=== PATIENT | female | born 1990 | race Caucasian/White ===

== ENCOUNTER 2016-07-15 06:51 | Emergency (ER) | payer SELFPAY ==
[~2016-07-15] VITALS: Ht 177.8 cm; Wt 136.1 kg
--- NOTE | 2016-07-15 07:19 | ED Dyspnea ---
General Stated Complaint: POSS BRONCHITIS Source of Information: Patient, RN Notes Reviewed Exam Limitations: No Limitations History of Present Illness Time Seen by Provider: 07:18 Initial Comments As above and below. Timing/Duration: Other (5 DAYS) Severity: Moderate Activities at Onset: None Prior Episodes/Possible Cause: Occasional Episodes Modifying Factors: Worse With Coughing Associated Symptoms: Cough, Fever (???), Wheezing Allergies and Home Medications Allergies Coded Allergies: No Known Drug Allergies (Unverified , 07/15/16) Home Medications Albuterol Sulfate 1 Puff Puff, 2 PUFF IH Q4H PRN for wheezing/cough/SOA, #1 Ref 0 1 PUFF = 90 MCG Prescribed by: LUANN URBINA on 07/15/16 0810 Prednisone 20 Mg Tab, 30 MG PO BID, #15 Ref 0 Prescribed by: LUANN URBINA on 07/15/16 0810 Constitutional: see HPI, fever (???) Respiratory: see HPI, cough All Other Systems Reviewed Negative Unless Noted: Yes (Negative excepted noted.) Past [id number] Hx Patient Social History Recent Foreign Travel: No Contact w/Someone Who Travel: No Physical Exam Vital Signs Vital Sign - Last 12Hours 07/15/16 07/15/16 07:12 08:15 Temp 98.2 Pulse 100 Resp 18 B/P (MAP) 141/110 Pulse Ox 94 O2 Delivery Room Air Capillary Refill : General Appearance: No Apparent Distress, WD/WN, Obese HEENT: Normal ENT Inspection Neck: Supple Respiratory: No Respiratory Distress, Rhonci, Wheezing Cardiovascular: Regular Rate, Rhythm Rectal: Deferred Neurologic/Psychiatric: Alert, Oriented x3, No Motor/Sensory Deficits Skin: Warm/Dry Lymphatic: No Adenopathy Progress/Results/Core Measures Results/Orders Lab Results Laboratory Tests Test 07/15/16 07:52 Range/Units White Blood Count 10.4 4.3-11.0 10^3/uL Red Blood Count 5.31 4.35-5.85 10^6/uL Hemoglobin 15.1 11.5-16.0 G/DL Hematocrit 46 35-52 % Mean Corpuscular Volume 87 80-99 FL Mean Corpuscular Hemoglobin 28 25-34 PG Mean Corpuscular Hemoglobin Concent 33 32-36 G/DL Red Cell Distribution Width 13.3 10.0-14.5 % Platelet Count 345 130-400 10^3/uL Mean Platelet Volume 10.4 7.4-10.4 FL Neutrophils (%) (Auto) 49 42-75 % Lymphocytes (%) (Auto) 38 12-44 % Monocytes (%) (Auto) 9 0-12 % Eosinophils (%) (Auto) 3 0-10 % Basophils (%) (Auto) 1 0-10 % Neutrophils # (Auto) 5.1 1.8-7.8 X 10^3 Lymphocytes # (Auto) 3.9 1.0-4.0 X 10^3 Monocytes # (Auto) 0.9 0.0-1.0 X 10^3 Eosinophils # (Auto) 0.3 0.0-0.3 10^3/uL Basophils # (Auto) 0.1 0.0-0.1 10^3/uL My Orders Orders - LUANN URBINA DO Cbc With Automated Diff (07/15/16 07:21) Chest Pa/Lat (2 View) (07/15/16 07:21) Albuterol/Ipra Inhalation Soln (Duoneb I (07/15/16 07:30) Svn Sm Volume Nebulizer Rt-Rfs (07/15/16 07:21) Medications Given in ED Current Medications Medications Dose Ordered Sig/Raymond Route Start Time Stop Time Status Last Admin Dose Admin Albuterol/ Ipratropium 3 ml ONCE ONCE INH 07/15/16 07:30 07/15/16 07:31 DC 07/15/16 07:39 3 ML Vital Signs/I&O Vital Sign - Last 12Hours 07/15/16 07/15/16 07/15/16 07:12 07:40 08:15 Temp 98.2 Pulse 100 100 Resp 18 B/P (MAP) 141/110 Pulse Ox 94 96 95 O2 Delivery Room Air Diagnostic Imaging Diagonstic Imaging: Xray Plain Films/CT/US/NM/MRI: chest Reviewed: Reviewed/Discussed Departure Impression Impression: Primary Impression: Asthmatic bronchitis Disposition: 01 HOME, SELF-CARE Condition: Stable Departure-Patient Inst. Decision time for Depature: 08:08 Referrals: NO,LOCAL PHYSICIAN (PCP) Primary Care Physician Patient Instructions: Acute Bronchitis, Adult (DC) Scripts Albuterol Sulfate (PROAIR HFA) 1 Puff Puff 2 PUFF IH Q4H Y for wheezing/cough/SOA, #1 INHALER 0 Refills 1 PUFF = 90 MCG Prov: LUANN URBINA DO 07/15/16 Prednisone (Prednisone) 20 Mg Tab 30 MG PO BID, #15 TAB 0 Refills Prov: LUANN URBINA DO 07/15/16 Work/School Note: Work Release Form Date Seen in the Emergency Department: Jul 15, 2016 Return to Work: Jul 16, 2016 Restrictions: No Restrictions LUANN URBINA DO Jul 15, 2016 07:19
[2016-07-15] MEDS ORDERED: RT-ALBUTEROL/IPRATROPIUM 3 ML (DUONEB) VIAL INH ONE (07:30)
[2016-07-15 07:59] LABS: BASOPHILS # (AUTO) 0.1 10^3/uL (0.0-0.1); BASOPHILS % (AUTO) 1 % (0-10); EOSINOPHILS # (AUTO) 0.3 10^3/uL (0.0-0.3); EOSINOPHILS % (AUTO) 3 % (0-10); LYMPHOCYTES # (AUTO) 3.9 X 10^3 (1.0-4.0); LYMPHOCYTES % (AUTO) 38 % (12-44); MEAN CORPUSCULAR HEMOGLOBIN 28 PG (25-34); MEAN CORPUSCULAR HGB CONC 33 G/DL (32-36); MEAN CORPUSCULAR VOLUME 87 FL (80-99); MEAN PLATELET VOLUME 10.4 FL (7.4-10.4); MONOCYTES # (AUTO) 0.9 X 10^3 (0.0-1.0); MONOCYTES % (AUTO) 9 % (0-12); NEUTROPHILS # (AUTO) 5.1 X 10^3 (1.8-7.8); NEUTROPHILS % (AUTO) 49 % (42-75); PLATELET COUNT 345 10^3/uL (130-400); RED BLOOD COUNT 5.31 10^6/uL (4.35-5.85); RED CELL DISTRIBUTION WIDTH 13.3 % (10.0-14.5); WHITE BLOOD COUNT 10.4 10^3/uL (4.3-11.0)
[2016-07-15] MEDS ORDERED: RT-ALBUINH IH (08:10)
[2016-07-15] MEDS ORDERED: PRD20T PO (08:10)
[2016-07-15 08:15] VITALS: BP 129/97
--- NOTE | 2016-07-15 08:18 | Diagnostic Imaging Report ---
PA and lateral views of the chest. INDICATION: Shortness of breath. FINDINGS: There is mild interstitial prominence in the lower lobes with associated minimal focal atelectasis in the right lung base. No significant airspace opacity otherwise. The heart size is normal. No effusion or pneumothorax. Mediastinum and monique appear unremarkable. IMPRESSION: Findings may relate to viral or atypical pneumonia. Dictated by: Dictated on workstation # [id number]
== END 2016-07-15 08:15 | disposition home or self-care (01) ==
LOC: ER 06:56
DX: J45.901 Unspecified asthma with (acute) exacerbation (principal)
CPT/HCPCS: 36415; 71020; 85025; 94640; 99282